=== PATIENT | male | born 1955 | race Caucasian/White ===

== ENCOUNTER 2017-02-07 12:57 | Day surgery (SDC) | payer OTHER ==
[2017-02-05 15:45] VITALS: BMI 26.5
[~2017-02-07 12:57] MED LIST: LACTATED RINGERS 1,000 ML IV SCH; MOXIFLOXACIN HCL 0.5% DROPS 3 ML BTL OP ONE; TETRACAINE 0.5% OPHTH (PF) DROPS 4 ML BTL OP ONE; TIMOLOL 0.5% OPHTH SOLN (PF) 0.2 ML DROPERETTE OP ONE
[2017-02-07] MEDS ORDERED: MIDAZOLAM 2 MG/2 ML VIAL ONE ×2 (15:12→16:29)
[2017-02-07] MEDS ORDERED: fentaNYL (PF) 50 MCG/ML 2 ML AMP ONE ×2 (15:12→16:29)
[2017-02-07] MEDS: CYCLOPENTOLATE 1% OPHTH SOLN 2 ML BTL OP ONE ×3 (15:27→15:49)
[2017-02-07 15:31] VITALS: TEMP 97.4
[2017-02-07] MEDS: PHENYLEPHRINE 2.5% OPHTH DRP 2ML OP NR ×3 (15:31→15:58)
[2017-02-07] MEDS ORDERED: LIDOCAINE 1% 20 ML VIAL (10MG/ML) FOR IV START INTRADERMA ONE (15:39)
[2017-02-07] MEDS ORDERED: LIDOCAINE 1% (PF) 10MG/ML VIAL MISCELLANE ONE (16:40)
[2017-02-07] MEDS ORDERED: BALANCED SALT IRRIG SOLN COMB2 15 ML IRRIG.SOLN INTRAOCULA ONE (16:40)
[2017-02-07] MEDS ORDERED: DUOVISC KIT (GREEN BOX) INTRAOCULA ONE (16:40)
[2017-02-07] MEDS ORDERED: EPINEPHrine (PF) 0.3 ML in BALANCED SALT IRRIG SOLN COMB2 500 ML IRRIGATION ONE (16:41)
--- NOTE | 2017-02-07 17:01 | P.OP ---
Date of Procedure: 02/07/17 Preoperative Diagnosis: NS Postoperative Diagnosis: same Procedure(s) Performed: PIOL OS Implants: PCB00 18.00 Anesthesia: MAC Surgeon: Pedro Sanford Estimated Blood Loss (ml): 0 Pathology: none sent Condition: stable Disposition: same day Indications for Procedure: blurry vision Operative Findings: no complications Description of Procedure:
[2017-02-07 17:07] VITALS: RESP 16
[2017-02-07 17:16] VITALS: BP 147/83; PULSE 65
--- NOTE | 2017-02-08 10:39 | OP ---
DATE OF SERVICE: 02/07/2017 SURGEON: BELLE RODRIGUEZ MD CHIEF WRITER: PREOPERATIVE DIAGNOSIS: Nuclear sclerosis. POSTOPERATIVE DIAGNOSIS: OPERATION: Phacoemulsification of cataract and intraocular lens implant of the left eye. ANESTHESIA: ESTIMATED BLOOD LOSS: Zero. SPECIMEN TAKEN: None. NARRATIVE: After obtaining the appropriate consent, the patient was brought to the Operating Room where the patient was placed under cardiac monitoring and prepped and draped in the usual sterile manner. At the 5 o'clock position a 15 degree super sharp blade was used to create a paracentesis followed by instillation of 1% Xylocaine MPF 50:50 mix with BSS into the anterior chamber. This was followed by Duovisc to stabilize the anterior chamber. At the 3 o'clock position a self-sealing corneal flap incision was created using 2.8 mm nader keratome. A cystotome was used to initiate a continuous tear capsulorrhexis which was completed with the Utrata forceps. A Binkhorst cannula was used to hydrodissect the lens nucleus followed by hydrodelineation. Phacoemulsification of the lens was performed utilizing phacochop in 20.53 seconds at 12% power. The remaining cortical material was removed using the irrigation aspiration mode followed by additional 1% Xylocaine MPF into the anterior chamber followed by viscoelastic to stabilize the capsular bag. An NIKOS PCB00 18.0 diopters posterior chamber lens was placed into the capsular bag without difficulty. The remaining viscoelastic material was removed from the anterior chamber with the irrigation/aspiration. Balanced salt solution was used to normalize the intraocular pressure. The incision was checked for watertight integrity. The patient then received 2 drops of 0.5% timolol followed by 2 drops Vigamox, was lightly patched and shielded in the usual manner. There were no complications from the procedure. The patient tolerated the procedure well and was returned to recovery in good condition.
== END 2017-02-07 17:40 | disposition home or self-care (01) ==
LOC: OR 12:57
PROVIDERS: ATTEND Ophthalmology
DX: H25.12 Age-related nuclear cataract, left eye (principal); I10 Essential (primary) hypertension; Z87.891 Personal history of nicotine dependence; Z79.899 Other long term (current) drug therapy
CPT/HCPCS: 66984; C1780; J2250; J0171; J3010; J2001

== ENCOUNTER 2017-03-07 06:17 | Day surgery (SDC) | payer OTHER ==
[2017-03-01 15:53] VITALS: BMI 26.5
[~2017-03-07 06:17] MED LIST changes: -MOXIFLOXACIN HCL 0.5% DROPS 3 ML BTL OP ONE; -TETRACAINE 0.5% OPHTH (PF) DROPS 4 ML BTL OP ONE; -TIMOLOL 0.5% OPHTH SOLN (PF) 0.2 ML DROPERETTE OP ONE
[2017-03-07 06:52] VITALS: RESP 18; TEMP 97.8
[2017-03-07] MEDS: PHENYLEPHRINE 2.5% OPHTH DRP 2ML OP NR ×3 (06:59→07:16)
[2017-03-07] MEDS ORDERED: BALANCED SALT IRRIG SOLN COMB2 15 ML IRRIG.SOLN IRRIGATION ONE ×2 (07:28→07:46)
[2017-03-07] MEDS ORDERED: DUOVISC KIT (GREEN BOX) INTRAOCULA ONE ×2 (07:28→07:47)
[2017-03-07] MEDS ORDERED: LIDOCAINE 1% (PF) 10MG/ML VIAL MISCELLANE ONE ×2 (07:28→07:47)
[2017-03-07] MEDS: TIMOLOL 0.5% OPHTH SOLN (PF) 0.2 ML DROPERETTE OP ONE ×2 (07:30→07:47)
[2017-03-07] MEDS: MOXIFLOXACIN HCL 0.5% DROPS 3 ML BTL RIGHT EYE PRN ×2 (07:30→07:47)
[2017-03-07] MEDS ORDERED: MIDAZOLAM 2 MG/2 ML VIAL ONE (07:35)
[2017-03-07] MEDS ORDERED: fentaNYL (PF) 50 MCG/ML 2 ML AMP ONE (07:35)
[2017-03-07] MEDS ORDERED: EPINEPHrine (PF) 0.3 ML in BALANCED SALT IRRIG SOLN COMB2 500 ML IRRIGATION ONE (07:45)
--- NOTE | 2017-03-07 08:05 | P.OP ---
Date of Procedure: 03/07/17 Preoperative Diagnosis: NS Postoperative Diagnosis: same Procedure(s) Performed: PIOL, OD Implants: PCB00 17.50 Anesthesia: MAC Surgeon: Pedro Sanford Estimated Blood Loss (ml): 0 Pathology: none sent Condition: stable Disposition: same day Indications for Procedure: blurry vision Operative Findings: no complications Description of Procedure:
[2017-03-07 08:38] VITALS: BP 117/70; PULSE 60
[2017-03-08] MEDS ORDERED: CYCLOPENTOLATE 1% OPHTH SOLN 2 ML BTL OP ONE (05:00)
[2017-03-08] MEDS ORDERED: MOXIFLOXACIN HCL 0.5% DROPS 3 ML BTL OP ONE (05:00)
[2017-03-08] MEDS ORDERED: TETRACAINE 0.5% OPHTH (PF) DROPS 4 ML BTL OP ONE (05:00)
--- NOTE | 2017-03-08 13:59 | OP ---
PREOPERATIVE DIAGNOSIS: Nuclear sclerosis. POSTOPERATIVE DIAGNOSIS: Nuclear sclerosis. OPERATION: Clear cornea phacoemulsification of cataract and intraocular lens implant of the right eye. ESTIMATED BLOOD LOSS: Zero. SPECIMEN TAKEN: None. NARRATIVE: After obtaining the appropriate consent, the patient was brought to the Operating Room where the patient was placed under cardiac monitoring and prepped and draped in the usual sterile manner. At the 11 oclock position, a 15 degree super sharp blade was used to create a paracentesis followed by instillation of 1% Xylocaine MPF 50:50 mix with BSS intoe the anterior chamber. This was followed by Duovisc to stabilize the anterior chamber. At the 9 o clock position, a self sealing corneal flap incision was created using 2.8 mm nader keratome. A cystatome was used to initiate a continuous tear capsulorrhexis which was completed with the Utrata forceps. A Binkhorst cannula was used to hydrodissect the lens nucleus followed by hydrodelineation. Phacoemulsification of the lens was performed utilizing phacochop in 55 seconds at 12% power. The remaining cortical material was removed using the irrigation aspiration mode followed by additional 1% Xylocaine MPF into the anterior chamber followed by viscoelastic to stabilize the capsular bag. An NIKOS PZB 00 17.5 diopter posterior chamber lens was placed into the capsular bag without difficulty. The remaining viscoelastic material was removed from the anterior chamber with the irrigation/aspiration. Balanced salt solution was used to normalize the intraocular pressure. The incision was checked for watertight integrity. The patient then received two drops of 0.5% Timolol followed by two drops of Vigamox, was lightly patched and shielded in the usual manner. There were no complications from the procedure. The patient tolerated the procedure well and was returned to the recovery room in good condition. CHERRI
== END 2017-03-07 08:56 | disposition home or self-care (01) ==
LOC: OR 06:17
PROVIDERS: ATTEND Ophthalmology
DX: H25.11 Age-related nuclear cataract, right eye (principal); H52.13 Myopia, bilateral; H52.223 Regular astigmatism, bilateral; H52.4 Presbyopia; H40.053 Ocular hypertension, bilateral; Z87.891 Personal history of nicotine dependence
CPT/HCPCS: 66984; C1780; J2250; J0171; J3010; J2001

== ENCOUNTER 2019-04-04 08:32 | Day surgery (SDC) | payer OTHER ==
[2019-04-01 09:34] VITALS: BMI 28.7
[2019-04-04 08:49] VITALS: RESP 16; TEMP 96.4
[2019-04-04] MEDS ORDERED: LIDOCAINE 1% 20 ML VIAL (10MG/ML) FOR IV START INTRADERMA ONE (08:53)
[2019-04-04] MEDS ORDERED: LIDOCAINE 1% INJ 10MG/ML (20 ML MDV) ONE (09:49)
[2019-04-04] MEDS ORDERED: PROPOFOL 10 MG/ML 20 ML VIAL IV ONE (09:49)
--- NOTE | 2019-04-04 09:52 | P.GSHP ---
History of Present Illness H&P Date: 04/04/19 Chief Complaint: Screening colonoscopy This is a 64-year-old male who presents today for screening colonoscopy. Patient denies a significant GI complaints. Past Medical History Past Medical History: No Reported History Additional Past Medical History / Comment(s): Bilateral cataracts. History of Any Multi-Drug Resistant Organisms: None Reported Past Surgical History: Orthopedic Surgery Additional Past Surgical History / Comment(s): Right rotator cuff surgery; WINSOME Cataract Past Anesthesia/Blood Transfusion Reactions: No Reported Reaction Smoking Status: Former smoker - Past Family History Father Family Medical History: Cancer Additional Family Medical History / Comment(s): STOMACH,THROAT CANCER Medications and Allergies Home Medications Medication Instructions Recorded Confirmed Type No Known Home Medications 02/05/17 04/01/19 History Allergies Allergy/AdvReac Type Severity Reaction Status Date / Time No Known Allergies Allergy Verified 04/01/19 09:29 Surgical - Exam Vital Signs Temp Pulse Resp BP Pulse Ox 96.4 F L 78 16 143/83 96 04/04/19 08:46 04/04/19 08:46 04/04/19 08:46 04/04/19 08:46 04/04/19 08:46 - General well developed, well nourished, no distress - Eyes PERRL - ENT normal pinna - Neck no masses - Respiratory normal expansion - Cardiovascular Rhythm: regular - Abdomen Abdomen: soft, non tender Assessment and Plan Assessment: We'll perform screening colonoscopy.
[2019-04-04 10:27] VITALS: BP 134/89; PULSE 66
--- NOTE | 2019-04-04 10:28 | P.OP ---
Date of Procedure: 04/04/19 Preoperative Diagnosis: Screening colonoscopy Postoperative Diagnosis: Normal colon Procedure(s) Performed: Colonoscopy Anesthesia: MAC Surgeon: Suraj Rico Pathology: none sent Condition: stable Disposition: PACU Description of Procedure: Normal colonoscopy
== END 2019-04-04 10:50 | disposition home or self-care (01) ==
LOC: ORWHC2ENDO 08:32
PROVIDERS: ATTEND Surgery
DX: Z12.11 Encounter for screening for malignant neoplasm of colon (principal); Z98.42 Cataract extraction status, left eye; Z98.41 Cataract extraction status, right eye; Z87.891 Personal history of nicotine dependence
CPT/HCPCS: J2001; J2704; G0121

== ENCOUNTER 2020-08-02 03:25 | Emergency (ER) | payer MEDICARE, OTHER ==
[2020-08-02] MEDS ORDERED: ONDANSETRON 4 MG/2 ML VIAL IVP STA ×2 (03:49→05:06)
[2020-08-02] MEDS ORDERED: MORPHINE SULFATE 4 MG/ML SYRINGE IV STA (03:49)
[2020-08-02] MEDS ORDERED: SODIUM CHLORIDE 0.9% 1,000 ML IV STA ×3 (03:49→04:54)
[2020-08-02] MEDS ORDERED: PANTOPRAZOLE 40 MG/10 ML VIAL IVP STA (03:49)
--- NOTE | 2020-08-02 03:51 | ED ---
Abdominal Pain HPI - General Chief Complaint: Abdominal Pain Stated Complaint: Abd pain,vomiting Time Seen by Provider: 08/02/20 03:41 Source: patient, family, old records reviewed Mode of arrival: ambulatory Limitations: no limitations - History of Present Illness Initial Comments: This is a 65-year-old male DF for evaluation of severe abdominal pain. Sudden onset 4 hours prior to arrival. No medical history of similar complaint. Patient has some episodic blood pressure issues but not currently blood pressure medication. Patient had worsening pain until tonight became very sweaty and diaphoretic with severe abdominal pain nausea no vomiting. Patient without fever. Noted family has similar complaint here due to patient's clinical condition, history is limited at this time MD Complaint: abdominal pain (epigastric abdominal pain - severe) Location: periumbilical, epigastric, bilateral flank Radiation: epigastric, back Migration to: epigastric Severity: severe Severity scale (1-10): 10 Quality: stabbing Consistency: constant Improves With: nothing Worsens With: nothing Context: possible food poisoning Associated Symptoms: nausea, vomiting, other (diaphoreses) - Related Data Home Medications Medication Instructions Recorded Confirmed No Known Home Medications 02/05/17 04/01/19 Allergies Allergy/AdvReac Type Severity Reaction Status Date / Time No Known Allergies Allergy Verified 08/02/20 03:45 Review of Systems ROS Statement: Those systems with pertinent positive or pertinent negative responses have been documented in the HPI. ROS Other: All systems not noted in ROS Statement are negative. Past Medical History Past Medical History: No Reported History Additional Past Medical History / Comment(s): Bilateral cataracts. History of Any Multi-Drug Resistant Organisms: None Reported Past Surgical History: Orthopedic Surgery Additional Past Surgical History / Comment(s): Right rotator cuff surgery; WINSOME Cataract Past Anesthesia/Blood Transfusion Reactions: No Reported Reaction Past Psychological History: No Psychological Hx Reported Smoking Status: Former smoker Past Alcohol Use History: None Reported Past Drug Use History: None Reported - Past Family History Father Family Medical History: Cancer Additional Family Medical History / Comment(s): STOMACH,THROAT CANCER General Exam General appearance: alert, anxious, in distress Head exam: Present: atraumatic, normocephalic, normal inspection Eye exam: Present: normal appearance, PERRL, EOMI. Absent: scleral icterus, conjunctival injection, periorbital swelling ENT exam: Present: normal exam, mucous membranes moist Neck exam: Present: normal inspection. Absent: tenderness, meningismus, lymphadenopathy Respiratory exam: Present: normal lung sounds bilaterally, other (tachypneic). Absent: respiratory distress, wheezes, rales, rhonchi, stridor Cardiovascular Exam: Present: normal rhythm, tachycardia, normal heart sounds. Absent: systolic murmur, diastolic murmur, rubs, gallop, clicks GI/Abdominal exam: Present: distended, tenderness, guarding, normal bowel sounds. Absent: rebound, rigid Extremities exam: Present: normal inspection, full ROM, normal capillary refill. Absent: tenderness, pedal edema, joint swelling, calf tenderness Back exam: Present: normal inspection Neurological exam: Present: alert, oriented X3, CN II-XII intact Psychiatric exam: Present: normal affect, normal mood Skin exam: Present: warm, dry, intact, normal color. Absent: rash Course Vital Signs 08/02/20 03:43 Temperature 97.5 F L Pulse Rate 129 H Respiratory 26 H Rate Blood Pressure 166/119 O2 Sat by Pulse 95 Oximetry - Reevaluation(s) Reevaluation #1: 08/02/20 05:04 Medical record is reviewed Reevaluation #2: 08/02/20 05:04 DUe to Likelihood of severe acute bleed and acute abdomen patient was given transfusion here in the ER patient now noticed to have severe acute necrotizing pancreatitis, after 1 unit patient is source of volume resuscitation with 2L Reevaluation #3: 08/02/20 05:05 On arrival to ER based on blood pressure and symptoms and to pain control blood pressure control - Consultations Consultation #1: Spoke with Chief Of Party surgery based on CT results, does not appear aneurysm is causing patient's symptoms likely resulting from pancreatic bleeding or necrotizing pancreatitis Consultation #2: Spoke with Dr. Bello for GI who does recommend up Plan transfer Consultation #3: Spoke with [facility] regarding patient, they're agreeable to accept transfer Medical Decision Making - Medical Decision Making 65 male to the ER with severe sudden onset epigastric to back pain. Patient does have severe acute necrotizing pancreatitis, patient has fluid resuscitation, blood pressure control, both nausea and GI medications. Pain is controlled currently, patient accepted for transfer [facility] - Lab Data Result diagrams: 08/02/20 04:03 08/02/20 04:03 Lab Results 12/03/1508/02/20 08/02/20 Range/Units 04:03 04:03 04:03 WBC 16.1 H (3.8-10.6) k/uL RBC 7.01 H (4.30-5.90) m/uL Hgb 20.0 H* (13.0-17.5) gm/dL Hct 61.0 H* (39.0-53.0) % MCV 87.0 (80.0-100.0) fL MCH 28.6 (25.0-35.0) pg MCHC 32.9 (31.0-37.0) g/dL RDW 12.9 (11.5-15.5) % Plt Count 316 (150-450) k/uL MPV 6.9 Neutrophils % 85 % Lymphocytes % 11 % Monocytes % 4 % Eosinophils % 0 % Basophils % 0 % Neutrophils # 13.6 H (1.3-7.7) k/uL Lymphocytes # 1.8 (1.0-4.8) k/uL Monocytes # 0.6 (0-1.0) k/uL Eosinophils # 0.0 (0-0.7) k/uL Basophils # 0.0 (0-0.2) k/uL VBG pH (7.31-7.41) VBG pCO2 (37-51) mmHg VBG HCO3 (24-28) mmol/L Sodium 137 (137-145) mmol/L Potassium 5.0 (3.5-5.1) mmol/L Chloride 106 (98-107) mmol/L Carbon Dioxide 15 L (22-30) mmol/L Anion Gap 16 mmol/L BUN 34 H (9-20) mg/dL Creatinine 1.13 (0.66-1.25) mg/dL Est GFR (CKD-EPI)AfAm 79 (>60 ml/min/1.73 sqM) Est GFR (CKD-EPI)NonAf 68 (>60 ml/min/1.73 sqM) Glucose 469 H (74-99) mg/dL Plasma Lactic Acid Angel 4.3 H* (0.7-2.0) mmol/L Calcium 9.5 (8.4-10.2) mg/dL Total Bilirubin 1.4 H (0.2-1.3) mg/dL AST 32 (17-59) U/L ALT 32 (4-49) U/L Alkaline Phosphatase 98 (38-126) U/L Lactate Dehydrogenase 601 (313-618) U/L Creatine Kinase 67 (55-170) U/L C-Reactive Protein 13.3 H (<10.0) mg/L Total Protein 8.3 H (6.3-8.2) g/dL Albumin 4.7 (3.5-5.0) g/dL Amylase 970 H* (30-110) U/L Lipase 7406 H (23-300) U/L Blood Type Recheck Bld Type Recheck Status Spec Expiration Date 08/02/20 08/02/20 Range/Units 04:03 04:27 WBC (3.8-10.6) k/uL RBC (4.30-5.90) m/uL Hgb (13.0-17.5) gm/dL Hct (39.0-53.0) % MCV (80.0-100.0) fL MCH (25.0-35.0) pg MCHC (31.0-37.0) g/dL RDW (11.5-15.5) % Plt Count (150-450) k/uL MPV Neutrophils % % Lymphocytes % % Monocytes % % Eosinophils % % Basophils % % Neutrophils # (1.3-7.7) k/uL Lymphocytes # (1.0-4.8) k/uL Monocytes # (0-1.0) k/uL Eosinophils # (0-0.7) k/uL Basophils # (0-0.2) k/uL VBG pH 7.40 (7.31-7.41) VBG pCO2 32 L (37-51) mmHg VBG HCO3 19 L (24-28) mmol/L Sodium (137-145) mmol/L Potassium (3.5-5.1) mmol/L Chloride (98-107) mmol/L Carbon Dioxide (22-30) mmol/L Anion Gap mmol/L BUN (9-20) mg/dL Creatinine (0.66-1.25) mg/dL Est GFR (CKD-EPI)AfAm (>60 ml/min/1.73 sqM) Est GFR (CKD-EPI)NonAf (>60 ml/min/1.73 sqM) Glucose (74-99) mg/dL Plasma Lactic Acid Angel (0.7-2.0) mmol/L Calcium (8.4-10.2) mg/dL Total Bilirubin (0.2-1.3) mg/dL AST (17-59) U/L ALT (4-49) U/L Alkaline Phosphatase (38-126) U/L Lactate Dehydrogenase (313-618) U/L Creatine Kinase (55-170) U/L C-Reactive Protein (<10.0) mg/L Total Protein (6.3-8.2) g/dL Albumin (3.5-5.0) g/dL Amylase (30-110) U/L Lipase (23-300) U/L Blood Type Recheck No Previous Record Bld Type Recheck Status CABO Indicated Spec Expiration Date 08/05/2020 8907 - EKG Data -: EKG Interpreted by Me (EKG is sinus tachycardia rate 116 HI 136 QRS 86 QTc 486) - Radiology Data Radiology results: report reviewed (CTA chest is negative for acute disease CT head and pelvis does show significant signs of acute necrotizing pancreatitis), image reviewed Critical Care Time Critical Care Time: Yes Total Critical Care Time: 96 Disposition Clinical Impression: Acute abdomen, Acute necrotizing pancreatitis, Severe acute pancreatitis, Hypertensive emergency Disposition: OTHER INSTITUTION NOT DEFINED Condition: Critical Is patient prescribed a controlled substance at d/c from ED?: No Referrals: None,Stated [Primary Care Provider] - 1-2 days - Out of Hospital Transfer - Req. Specs Out of Hospital Transfer - Requested Specifics: Other Emergency Center ([facility])
[2020-08-02] MEDS ORDERED: LABETALOL 5 MG/ML VIAL MDV IVP STA (03:56)
[2020-08-02] MEDS ORDERED: METOPROLOL TARTRATE 5 MG/5 ML VIAL IVP STA (04:01)
[2020-08-02 04:11] LABS: VBG PH 7.4 (7.31-7.41)
[2020-08-02 04:23] LABS: Albumin 4.7 g/dL (3.5-5.0); C Reactive Protein 13.3 mg/L (<10.0); Calcium 9.5 mg/dL (8.4-10.2); Total Bilirubin 1.4 mg/dL (0.2-1.3); Total Protein 8.3 g/dL (6.3-8.2)
[2020-08-02 04:26] LABS: Basophils % (A) 0 %; Eosinophils % (A) 0 %; Lymphocytes # (A) 1.8 k/uL (1.0-4.8); Lymphocytes % (A) 11 %; MCH 28.6 pg (25.0-35.0); MCHC 32.9 g/dL (31.0-37.0); Mean Platelet Volume 6.9; Monocytes # (A) 0.6 k/uL (0-1.0); Monocytes % (A) 4 %; Neutrophils # (A) 13.6 k/uL (1.3-7.7); Neutrophils % (A) 85 %; Platelet Count 316 k/uL (150-450); RDW 12.9 % (11.5-15.5); WBC 16.1 k/uL (3.8-10.6)
[2020-08-02] MEDS ORDERED: cefTRIAXone IN SWFI 1,000 MG/10 ML SYRINGE IVP STA (04:36)
--- NOTE | 2020-08-02 04:39 | CT ---
EXAM: CT Angiography Chest With Intravenous Contrast CLINICAL HISTORY: ITS.REASON CT Reason: pain TECHNIQUE: Axial computed tomographic angiography images of the chest with intravenous contrast. CTDI is 15.085 mGy and DLP is 434.8 mGy-cm. This CT exam was performed using one or more of the following dose reduction techniques: automated exposure control, adjustment of the mA and/or kV according to patient size, and/or use of iterative reconstruction technique. MIP reconstructed images were created and reviewed. COMPARISON: No relevant prior studies available. FINDINGS: Pulmonary arteries: No filling defects. Aorta: No thoracic aortic aneurysm. Lungs: No mass. No consolidation. Pleural space: No pneumothorax. No effusion. Heart: No cardiomegaly. No pericardial effusion. Bones/joints: No acute fracture or dislocation. Soft tissues: Significant inflammation around the pancreas. Mild hiatal hernia. Lymph nodes: No enlarged lymph nodes. IMPRESSION: 1. No acute intrathoracic findings. 2. Severe pancreatitis. 3. Mild hiatal hernia with reflux of fluid into the esophagus.
[2020-08-02] MEDS ORDERED: HYDROmorphone 1 MG/ML 1 ML SYRINGE IVP STA (04:40)
[2020-08-02] MEDS ORDERED: HYDROmorphone 1 MG/ML 1 ML SYRINGE IVP PRN (04:40)
[2020-08-02] MEDS ORDERED: CLEVIDIPINE BUTYRATE 25 MG in EMPTY BAG 1 BAG IV SCH (04:45)
[2020-08-02 04:51] LABS: RBC 7.01 m/uL (4.30-5.90)
--- NOTE | 2020-08-02 04:51 | CT ---
EXAM: CT Abdomen and Pelvis With Intravenous Contrast CLINICAL HISTORY: ITS.REASON CT Reason: pain TECHNIQUE: Axial computed tomography images of the abdomen and pelvis with intravenous contrast. CTDI is 22.785 mGy and DLP is 1146.5 mGy-cm. This CT exam was performed using one or more of the following dose reduction techniques: automated exposure control, adjustment of the mA and/or kV according to patient size, and/or use of iterative reconstruction technique. COMPARISON: No relevant prior studies available. FINDINGS: ABDOMEN: Liver: Steatosis. Gallbladder and bile ducts: Unremarkable. Pancreas: Decreased enhancement of the pancreatic head. Spleen: Unremarkable. Adrenals: Unremarkable. Kidneys and ureters: No hydronephrosis. Stomach and bowel: No bowel obstruction. No bowel wall thickening. PELVIS: Appendix: No evidence of appendicitis. Bladder: Unremarkable. Reproductive: Unremarkable. ABDOMEN and PELVIS: Intraperitoneal space: Significant inflammation and free fluid around the pancreas. Fluid extends into the pelvis. Bones/joints: No acute fractures. Soft tissues: Unremarkable. Vasculature: 3.2 cm aortic aneurysm. Lymph nodes: No enlarged lymph nodes. IMPRESSION: 1. Evidence of severe pancreatitis. Decreased enhancement of the pancreatic head compared to the body/tail. Suspicious for necrosis. 2. 3.2 cm aortic aneurysm. 3. Hepatic steatosis.
[2020-08-02] MEDS ORDERED: AMPICILLIN-SULBACTAM 3 GM in SODIUM CHLORIDE 0.9% 100 ML IVPB STA (04:55)
[2020-08-02 05:41] LABS: Appearance,Urine Clear (Clear); Bilirubin,Urine Negative (Negative); Blood,Urine Negative (Negative); Color,Urine Yellow; Glucose,Urine (UA) 4+ (Negative); Hyaline Casts,Urine 89 /lpf (0-2); Ketones,Urine 1+ (Negative); Leukocyte Esterase,Urine Negative (Negative); Mucus,Urine Rare /hpf; Nitrite,Urine Negative (Negative); Protein,Urine 1+ (Negative); RBC,Urine 1 /hpf (0-5); Urobilinogen,Urine <2.0 mg/dL (<2.0); WBC,Urine 1 /hpf (0-5)
[2020-08-02 05:46] LABS: Specific Gravity,Urine 1.046 (1.001-1.035)
[2020-08-02 06:22] VITALS: RESP 16; TEMP 97.7
[2020-08-02 06:40] VITALS: BP 177/111; PULSE 93
[2020-08-02 06:40] LABS: Magnesium 1.5 mg/dL (1.6-2.3); Phosphorus 5.2 mg/dL (2.5-4.5)
== END 2020-08-02 07:04 | disposition other institution (70) ==
LOC: EC 03:25
DX: Z03.818 Encounter for observation for suspected exposure to other biological agents ruled out (principal); K85.91 Acute pancreatitis with uninfected necrosis, unspecified; R10.0 Acute abdomen; I16.1 Hypertensive emergency; Z87.891 Personal history of nicotine dependence
CPT/HCPCS: 36415; 93005; 86900; 86901; 80053; 82150; 82550; 82803; 83605; 83615; 83690; 83735; 84100; 85025; 86850; 86920; 86140; 81001; 87635; 71275; 74177; 99291; 99292; 96365; 96367; 96375 ×7; 96376; 96361 ×2; P9016; J2270; J2405; J0696; J1170; J0295; C9113; C9248; Q9967

== ENCOUNTER → 2025-02-10 | Outpatient (CLI) | payer MEDICARE ==
[2025-02-10 15:18] LABS: ALT 218 U/L (10-49); AST 128 U/L (14-35); Albumin 4.2 g/dL (3.8-4.9); Albumin/Globulin Ratio 1.56 Ratio (1.60-3.17); Alkaline Phosphatase 286 U/L (41-126); BUN/Creat Ratio 33.33 Ratio (12.00-20.00); Calcium 9.6 mg/dL (8.7-10.3); Chloride 102 mmol/L (96-109); Globulin 2.7 g/dL (1.6-3.3); Glucose 262 mg/dL (70-110); Potassium 4.8 mmol/L (3.5-5.5); Sodium 139 mmol/L (135-145); Total Bilirubin 0.8 mg/dL (0.3-1.2); Total Protein 6.9 g/dL (6.2-8.2)
== END | disposition home or self-care (01) ==
LOC: LABWHC1 07:52
PROVIDERS: ATTEND Internal Medicine Endocrinology, Diabetes & Metabolism
DX: E11.65 Type 2 diabetes mellitus with hyperglycemia (principal)
CPT/HCPCS: 36415; 80053; 83519; 84681